=== PATIENT | female | born 1990 | race Asian ===

== ENCOUNTER 2018-06-27 16:31 | Outpatient (CLI) | payer MEDICAID ==
[2018-06-27 19:12] LABS: ADD MAN DIFF? NO
[2018-06-27 19:15] LABS: BASOPHILS % 0.2 % (0.0-2.0); EOSINOPHILS % 0.3 % (0.0-7.0); HEMATOCRIT 36.4 % (37.0-47.0); HEMOGLOBIN 11.9 g/dl (12.0-16.0); LYMPHOCYTES % 22.2 % (15.0-51.0); MEAN CORPUSCULAR HEMOGLOBIN 28.2 pg (29.0-33.0); MEAN CORPUSCULAR HGB CONC 32.7 g/dl (32.0-37.0); MEAN CORPUSCULAR VOLUME 86.3 fl (82.0-101.0); MEAN PLATELET VOLUME 10.8 fl (7.4-10.4); MONOCYTE # 0.7 10^3/ul (0.3-0.9); MONOCYTES % 7.9 % (0.0-11.0); NEUTROPHIL # 6.3 10^3/ul (1.6-7.5); PLATELET COUNT 213 10^3/UL (140-415); RED BLOOD COUNT 4.22 10^6/ul (4.20-5.40); RED CELL DISTRIBUTION WIDTH 14.5 % (11.5-14.5)
[2018-06-27 19:15] LABS: WHITE BLOOD COUNT 9.1 10^3/ul (4.8-10.8)
[2018-06-27 19:33] LABS: ADD UMIC YES; UR ASCORBIC ACID NEGATIVE (NEGATIVE); UR BACTERIA FEW /HPF (NONE SEEN); UR BILIRUBIN (Dip) NEGATIVE (NEGATIVE); UR BLOOD (Dip) 1+ mg/dL (NEGATIVE); UR CLARITY CLEAR (CLEAR); UR COLOR STRAW (YELLOW); UR GLUCOSE (Dip) NEGATIVE (NEGATIVE); UR KETONES (Dip) NEGATIVE (NEGATIVE); UR LEUKOCYTE ESTERASE (Dip) NEGATIVE Leu/ul (NEGATIVE); UR NITRITE (Dip) NEGATIVE (NEGATIVE); UR RBC 0 /HPF (0-5); UR SPECIFIC GRAVITY (Dip) 1.006 (1.003-1.030); UR TOTAL PROTEIN (Dip) NEGATIVE (NEGATIVE); UR UROBILINOGEN (Dip) NEGATIVE (NEGATIVE); UR WBC 0 /HPF (0-5)
== END 2018-06-27 20:00 | disposition home or self-care (01) ==
LOC: OBT 16:31 → L-D 16:32 → OBT 20:00
DX: O26.852 Spotting complicating pregnancy, second trimester (principal); Z3A.26 26 weeks gestation of pregnancy
CPT/HCPCS: 76817; 76818; 81001; 85025

== ENCOUNTER 2018-07-04 08:14 | Inpatient (IN) | payer MEDICAID ==
[2018-07-04] MEDS: LACTATED RINGER'S 1,000 ML IV ×2 (09:52→20:36)
[2018-07-04] MEDS: MAGNESIUM SULFATE 4 GM/100 ML 100 ML IV (09:55)
[2018-07-04] MEDS: MAGNESIUM SULFATE 20 GM/500 ML 500 ML IV ×2 (10:29→20:43)
[2018-07-04 11:23] LABS: ADD MAN DIFF? NO
[2018-07-04 11:35] LABS: WHITE BLOOD COUNT 7.3 10^3/ul (4.8-10.8)
[2018-07-04 11:35] LABS: BASOPHILS % 0.3 % (0.0-2.0); EOSINOPHILS % 0.5 % (0.0-7.0); HEMATOCRIT 34.6 % (37.0-47.0); HEMOGLOBIN 11.2 g/dl (12.0-16.0); LYMPHOCYTES # 1.5 10^3/ul (0.8-2.9); LYMPHOCYTES % 20.4 % (15.0-51.0); MEAN CORPUSCULAR HEMOGLOBIN 27.7 pg (29.0-33.0); MEAN CORPUSCULAR HGB CONC 32.4 g/dl (32.0-37.0); MEAN CORPUSCULAR VOLUME 85.6 fl (82.0-101.0); MEAN PLATELET VOLUME 11.1 fl (7.4-10.4); MONOCYTE # 0.4 10^3/ul (0.3-0.9); MONOCYTES % 5.6 % (0.0-11.0); NEUTROPHIL # 5.3 10^3/ul (1.6-7.5); NEUTROPHILS % 72.8 % (39.0-77.0); PLATELET COUNT 207 10^3/UL (140-415); RED BLOOD COUNT 4.04 10^6/ul (4.20-5.40); RED CELL DISTRIBUTION WIDTH 14.4 % (11.5-14.5)
[2018-07-04 11:57] LABS: ALANINE AMINOTRANSFERASE 18 IU/L (13-69); ALBUMIN 3.5 g/dl (3.3-4.9); ALBUMIN/GLOBULIN RATIO 1.12; ALKALINE PHOSPHATASE 56 IU/L (42-121); ANION GAP 9 (5-13); ASPARTATE AMINO TRANSFERASE 19 IU/L (15-46); BILIRUBIN,INDIRECT 0.2 mg/dl (0-1.1); BILIRUBIN,TOTAL 0.2 mg/dl (0.2-1.3); BLOOD UREA NITROGEN 6 mg/dl (7-20); CALCIUM 8.3 mg/dl (8.4-10.2); CARBON DIOXIDE 26 mmol/L (21-31); CHLORIDE 104 mmol/L (97-110); CREATININE 0.44 mg/dl (0.44-1.00); Estimated GFR > 60 mL/min (>60); GLUCOSE 99 mg/dl (70-220); POTASSIUM 3.8 mmol/L (3.5-5.1); SODIUM 139 mmol/L (135-144); TOTAL PROTEIN 6.6 g/dl (6.1-8.1)
[2018-07-04 12:04] LABS: ADD UMIC YES; UR ASCORBIC ACID NEGATIVE (NEGATIVE); UR BACTERIA FEW /HPF (NONE SEEN); UR BILIRUBIN (Dip) NEGATIVE (NEGATIVE); UR BLOOD (Dip) 1+ mg/dL (NEGATIVE); UR CLARITY CLEAR (CLEAR); UR COLOR STRAW (YELLOW); UR GLUCOSE (Dip) NEGATIVE (NEGATIVE); UR KETONES (Dip) NEGATIVE (NEGATIVE); UR LEUKOCYTE ESTERASE (Dip) NEGATIVE Leu/ul (NEGATIVE); UR MUCUS FEW /HPF (NONE SEEN); UR NITRITE (Dip) NEGATIVE (NEGATIVE); UR RBC 0 /HPF (0-5); UR SPECIFIC GRAVITY (Dip) 1.006 (1.003-1.030); UR TOTAL PROTEIN (Dip) NEGATIVE (NEGATIVE); UR UROBILINOGEN (Dip) NEGATIVE (NEGATIVE); UR WBC 0 /HPF (0-5)
[2018-07-04] MEDS: BETAMET NA PHOS/AC(6 MG/ML) 2 ML INJ SYG IM (12:50)
[2018-07-04] MEDS: INDOMETHACIN 25 MG PO (18:05)
[2018-07-04 19:10] LABS: MAGNESIUM 5.6 mg/dl (1.7-2.5)
[2018-07-05] MEDS: INDOMETHACIN 25 MG PO ×4 (00:17→19:03)
[2018-07-05 01:32] LABS: MAGNESIUM 6.2 mg/dl (1.7-2.5)
[2018-07-05 07:14] LABS: MAGNESIUM 6.5 mg/dl (1.7-2.5)
[2018-07-05] MEDS: MAGNESIUM SULFATE 20 GM/500 ML 500 ML IV ×2 (07:22→19:02)
[2018-07-05] MEDS: PRENATAL VITAMIN PO ×2 (08:21→09:00)
[2018-07-05] MEDS: LACTATED RINGER'S 1,000 ML IV ×2 (10:22→23:36)
[2018-07-05 12:49] LABS: MAGNESIUM 6.6 mg/dl (1.7-2.5)
[2018-07-05] MEDS: BETAMET NA PHOS/AC(6 MG/ML) 2 ML INJ SYG IM (13:52)
[2018-07-05 19:39] LABS: MAGNESIUM 5.9 mg/dl (1.7-2.5)
[2018-07-05] MEDS: NIFEdipine 10 MG CAP PO (20:00)
[2018-07-05] MEDS: DIPHENHYDRAMINE 25 MG CAP PO (21:15)
[2018-07-06] MEDS: INDOMETHACIN 25 MG PO ×3 (00:14→13:59)
[2018-07-06] MEDS: NIFEdipine 10 MG CAP PO ×3 (00:14→13:59)
[2018-07-06] MEDS: LACTATED RINGER'S 1,000 ML IV (00:16)
== END 2018-07-06 14:30 | disposition home or self-care (01) | DRG 833 ==
LOC: OBT 08:14 → L-D 08:14 → OBT 08:48 → L-D 08:40
DX: O44.12 Complete placenta previa with hemorrhage, second trimester (principal); Z3A.27 27 weeks gestation of pregnancy
CPT/HCPCS: 80053; 81001; 83735; 85025; 86850; 86900; 86901; 87086

== ENCOUNTER 2018-07-31 09:14 | Inpatient (IN) | payer MEDICAID ==
[2018-07-31] MEDS ORDERED: ONDANSETRON 4 MG INJ IV (10:00)
[2018-07-31] MEDS ORDERED: AL HYDROX/MG HYDROX/SIMETH 30 ML CUP PO (10:00)
[2018-07-31] MEDS ORDERED: ACETAMINOPHEN 325 MG TAB PO (10:00)
[2018-07-31] MEDS: BETAMET NA PHOS/AC(6 MG/ML) 2 ML INJ SYG IM (10:15)
[2018-07-31] MEDS: LACTATED RINGER'S 1,000 ML IV ×2 (10:21→22:42)
[2018-07-31] MEDS: MAGNESIUM SULFATE 4 GM/100 ML 100 ML IV (10:37)
[2018-07-31 10:55] LABS: ADD MAN DIFF? NO
[2018-07-31 10:59] LABS: HEMATOCRIT 33.8 % (37.0-47.0); HEMOGLOBIN 11.3 g/dl (12.0-16.0); MEAN CORPUSCULAR VOLUME 84.7 fl (82.0-101.0); RED BLOOD COUNT 3.99 10^6/ul (4.20-5.40)
[2018-07-31 10:59] LABS: WHITE BLOOD COUNT 6.9 10^3/ul (4.8-10.8)
[2018-07-31 11:00] LABS: BASOPHILS % 0.1 % (0.0-2.0); EOSINOPHILS # 0.1 10^3/ul (0.0-0.5); LYMPHOCYTES # 1.4 10^3/ul (0.8-2.9); LYMPHOCYTES % 20.8 % (15.0-51.0); MEAN CORPUSCULAR HEMOGLOBIN 28.3 pg (29.0-33.0); MEAN CORPUSCULAR HGB CONC 33.4 g/dl (32.0-37.0); MEAN PLATELET VOLUME 10.7 fl (7.4-10.4); MONOCYTE # 0.5 10^3/ul (0.3-0.9); MONOCYTES % 7.5 % (0.0-11.0); NEUTROPHIL # 4.8 10^3/ul (1.6-7.5); NEUTROPHILS % 69.9 % (39.0-77.0); PLATELET COUNT 178 10^3/UL (140-415); RED CELL DISTRIBUTION WIDTH 14.4 % (11.5-14.5)
[2018-07-31 11:18] LABS: INR 0.92; PROTIME 12.4 Sec (11.9-14.9)
[2018-07-31 11:19] LABS: PARTIAL THROMBOPLASTIN TIME 24.1 Sec (23.0-35.0)
[2018-07-31 11:23] LABS: ALANINE AMINOTRANSFERASE 8 IU/L (13-69); ALBUMIN 3.4 g/dl (3.3-4.9); ALBUMIN/GLOBULIN RATIO 1.09; ALKALINE PHOSPHATASE 76 IU/L (42-121); ANION GAP 10 (5-13); ASPARTATE AMINO TRANSFERASE 15 IU/L (15-46); BILIRUBIN,INDIRECT 0.1 mg/dl (0-1.1); BILIRUBIN,TOTAL 0.1 mg/dl (0.2-1.3); BLOOD UREA NITROGEN 7 mg/dl (7-20); CARBON DIOXIDE 23 mmol/L (21-31); CHLORIDE 105 mmol/L (97-110); CREATININE 0.44 mg/dl (0.44-1.00); Estimated GFR > 60 mL/min (>60); GLUCOSE 103 mg/dl (70-220); POTASSIUM 3.6 mmol/L (3.5-5.1); SODIUM 138 mmol/L (135-144); TOTAL PROTEIN 6.5 g/dl (6.1-8.1)
[2018-07-31] MEDS: MAGNESIUM SULFATE 20 GM/500 ML 500 ML IV ×2 (12:32→21:28)
[2018-07-31] MEDS: PRENATAL VITAMIN PO (13:55)
[2018-07-31] MEDS: FERROUS SULFATE (EC) 325 MG TAB PO (13:55)
[2018-07-31 14:54] LABS: RAPID PLASMA REAGIN NONREACTIVE (NR)
[2018-07-31 18:49] LABS: MAGNESIUM 5.4 mg/dl (1.7-2.5)
[2018-08-01 01:22] LABS: MAGNESIUM 5.8 mg/dl (1.7-2.5)
[2018-08-01 07:11] LABS: MAGNESIUM 6.1 mg/dl (1.7-2.5)
[2018-08-01] MEDS: MAGNESIUM SULFATE 20 GM/500 ML 500 ML IV (07:12)
[2018-08-01] MEDS: PRENATAL VITAMIN PO (09:21)
[2018-08-01] MEDS: FERROUS SULFATE (EC) 325 MG TAB PO (09:21)
[2018-08-01] MEDS: LACTATED RINGER'S 1,000 ML IV ×2 (09:44→12:04)
[2018-08-01] MEDS: BETAMET NA PHOS/AC(6 MG/ML) 2 ML INJ SYG IM (10:22)
[2018-08-01 13:23] LABS: MAGNESIUM 6.2 mg/dl (1.7-2.5)
[2018-08-01] MEDS ORDERED: NIFEdipine 10 MG CAP PO (15:00)
[2018-08-01] MEDS: NIFEdipine 10 MG CAP PO (15:03)
== END 2018-08-01 16:45 | disposition home or self-care (01) | DRG 831 ==
LOC: OBT 09:14 → L-D 09:15 → OBT 09:30 → L-D 09:30
DX: O60.03 Preterm labor without delivery, third trimester (principal); O44.13 Complete placenta previa with hemorrhage, third trimester; Z3A.31 31 weeks gestation of pregnancy
CPT/HCPCS: 76815; 76817; 76818; 80053; 83735; 85025; 85610; 85730; 86592; 86850; 86900; 86901

== ENCOUNTER 2018-08-23 20:20 | Inpatient (IN) | payer MEDICAID ==
[2018-08-23] MEDS ORDERED: ONDANSETRON 4 MG INJ IV (21:30)
[2018-08-23] MEDS ORDERED: AL HYDROX/MG HYDROX/SIMETH 30 ML CUP PO (21:30)
[2018-08-23] MEDS ORDERED: ACETAMINOPHEN 325 MG TAB PO (21:30)
[2018-08-23] MEDS: LACTATED RINGER'S 1,000 ML IV (22:07)
[2018-08-23] MEDS: MAGNESIUM SULFATE 4 GM/100 ML 100 ML IV (22:15)
[2018-08-23 22:25] LABS: WHITE BLOOD COUNT 7.6 10^3/ul (4.8-10.8)
[2018-08-23 22:25] LABS: ADD MAN DIFF? NO; BASOPHILS % 0.3 % (0.0-2.0); EOSINOPHILS # 0.1 10^3/ul (0.0-0.5); EOSINOPHILS % 1.4 % (0.0-7.0); HEMATOCRIT 34.2 % (37.0-47.0); HEMOGLOBIN 11.4 g/dl (12.0-16.0); LYMPHOCYTES % 26.6 % (15.0-51.0); MEAN CORPUSCULAR HEMOGLOBIN 28.3 pg (29.0-33.0); MEAN CORPUSCULAR HGB CONC 33.3 g/dl (32.0-37.0); MEAN CORPUSCULAR VOLUME 84.9 fl (82.0-101.0); MONOCYTE # 0.7 10^3/ul (0.3-0.9); MONOCYTES % 8.6 % (0.0-11.0); NEUTROPHIL # 4.7 10^3/ul (1.6-7.5); NEUTROPHILS % 62.4 % (39.0-77.0); PLATELET COUNT 179 10^3/UL (140-415); RED BLOOD COUNT 4.03 10^6/ul (4.20-5.40); RED CELL DISTRIBUTION WIDTH 14.6 % (11.5-14.5)
[2018-08-23 22:29] LABS: ADD UMIC YES; UR ASCORBIC ACID NEGATIVE (NEGATIVE); UR BACTERIA FEW /HPF (NONE SEEN); UR BILIRUBIN (Dip) NEGATIVE (NEGATIVE); UR BLOOD (Dip) 3+ mg/dL (NEGATIVE); UR CLARITY CLEAR (CLEAR); UR COLOR STRAW (YELLOW); UR GLUCOSE (Dip) NEGATIVE (NEGATIVE); UR KETONES (Dip) NEGATIVE (NEGATIVE); UR LEUKOCYTE ESTERASE (Dip) NEGATIVE Leu/ul (NEGATIVE); UR NITRITE (Dip) NEGATIVE (NEGATIVE); UR RBC 1 /HPF (0-5); UR SPECIFIC GRAVITY (Dip) 1.006 (1.003-1.030); UR SQUAMOUS EPITHELIAL CELL FEW /HPF (FEW); UR TOTAL PROTEIN (Dip) NEGATIVE (NEGATIVE); UR UROBILINOGEN (Dip) NEGATIVE (NEGATIVE); UR WBC 1 /HPF (0-5)
[2018-08-23 22:44] LABS: INR 0.89; PROTIME 12.1 Sec (11.9-14.9); PT RATIO 0.9
[2018-08-23] MEDS: MAGNESIUM SULFATE 20 GM/500 ML 500 ML IV (22:49)
[2018-08-24] MEDS: BETAMET NA PHOS/AC(6 MG/ML) 2 ML INJ SYG IM (00:59)
[2018-08-24 04:51] LABS: MAGNESIUM 5.2 mg/dl (1.7-2.5)
[2018-08-24] MEDS: PRENATAL VITAMIN PO (08:29)
[2018-08-24] MEDS: DOCUSATE SODIUM 100 MG CAP PO ×2 (08:29→22:00)
[2018-08-24] MEDS: MAGNESIUM SULFATE 20 GM/500 ML 500 ML IV ×2 (08:36→18:28)
[2018-08-24] MEDS: LACTATED RINGER'S 1,000 ML IV ×2 (10:41→23:36)
[2018-08-24 11:05] LABS: MAGNESIUM 5.8 mg/dl (1.7-2.5)
[2018-08-24 17:08] LABS: MAGNESIUM 6.1 mg/dl (1.7-2.5)
[2018-08-24 22:37] LABS: MAGNESIUM 5.9 mg/dl (1.7-2.5)
[2018-08-25] MEDS: BETAMET NA PHOS/AC(6 MG/ML) 2 ML INJ SYG IM (00:33)
[2018-08-25] MEDS: MAGNESIUM SULFATE 20 GM/500 ML 500 ML IV ×2 (04:04→13:20)
[2018-08-25 05:27] LABS: MAGNESIUM 6.3 mg/dl (1.7-2.5)
[2018-08-25] MEDS: DOCUSATE SODIUM 100 MG CAP PO (09:09)
[2018-08-25] MEDS: PRENATAL VITAMIN PO (09:09)
[2018-08-25 11:01] LABS: MAGNESIUM 6.2 mg/dl (1.7-2.5)
[2018-08-25] MEDS: NIFEdipine 10 MG CAP PO (14:08)
== END 2018-08-25 16:03 | disposition home or self-care (01) | DRG 832 ==
LOC: OBT 20:20 → L-D 20:20 → OBT 21:15 → L-D 21:15 → PP1 23:34
PROVIDERS: Obstetrics & Gynecology
DX: O46.93 Antepartum hemorrhage, unspecified, third trimester (principal); O47.03 False labor before 37 completed weeks of gestation, third trimester; Z3A.31 31 weeks gestation of pregnancy
CPT/HCPCS: 81001; 83735; 85025; 85610; 85730; 86850; 86900; 86901; 87086

== ENCOUNTER 2018-08-26 16:56 | Inpatient (IN) | payer MEDICAID ==
[2018-08-26 17:43] LABS: ADD UMIC YES; UR ASCORBIC ACID NEGATIVE (NEGATIVE); UR BACTERIA FEW /HPF (NONE SEEN); UR BILIRUBIN (Dip) NEGATIVE (NEGATIVE); UR BLOOD (Dip) 1+ mg/dL (NEGATIVE); UR CLARITY CLEAR (CLEAR); UR COLOR STRAW (YELLOW); UR GLUCOSE (Dip) NEGATIVE (NEGATIVE); UR KETONES (Dip) NEGATIVE (NEGATIVE); UR LEUKOCYTE ESTERASE (Dip) TRACE Leu/ul (NEGATIVE); UR MUCUS FEW /HPF (NONE SEEN); UR NITRITE (Dip) NEGATIVE (NEGATIVE); UR RBC 0 /HPF (0-5); UR SPECIFIC GRAVITY (Dip) 1.005 (1.003-1.030); UR TOTAL PROTEIN (Dip) NEGATIVE (NEGATIVE); UR UROBILINOGEN (Dip) NEGATIVE (NEGATIVE); UR WBC 1 /HPF (0-5)
[2018-08-26] MEDS: TERBUTALINE 1 MG/ML INJ SC ×2 (18:44→22:04)
[2018-08-26] MEDS: LACTATED RINGER'S 1,000 ML IV (21:24)
[2018-08-26 22:25] LABS: ADD MAN DIFF? NO
[2018-08-26 22:27] LABS: BASOPHILS % 0.2 % (0.0-2.0); EOSINOPHILS % 0.3 % (0.0-7.0); HEMATOCRIT 33.6 % (37.0-47.0); LYMPHOCYTES # 2.2 10^3/ul (0.8-2.9); LYMPHOCYTES % 21.9 % (15.0-51.0); MEAN CORPUSCULAR HEMOGLOBIN 28.4 pg (29.0-33.0); MEAN CORPUSCULAR HGB CONC 32.7 g/dl (32.0-37.0); MEAN CORPUSCULAR VOLUME 86.6 fl (82.0-101.0); MEAN PLATELET VOLUME 11.4 fl (7.4-10.4); MONOCYTE # 1.1 10^3/ul (0.3-0.9); MONOCYTES % 10.6 % (0.0-11.0); NEUTROPHIL # 6.5 10^3/ul (1.6-7.5); NEUTROPHILS % 65.6 % (39.0-77.0); PLATELET COUNT 195 10^3/UL (140-415); RED BLOOD COUNT 3.88 10^6/ul (4.20-5.40); RED CELL DISTRIBUTION WIDTH 15.2 % (11.5-14.5)
[2018-08-26 22:58] LABS: INR 0.92; PROTIME 12.5 Sec (11.9-14.9)
[2018-08-26 22:59] LABS: PARTIAL THROMBOPLASTIN TIME 21.1 Sec (23.0-35.0)
[2018-08-27] MEDS: LACTATED RINGER'S 1,000 ML IV ×2 (03:14→10:57)
[2018-08-27] MEDS: PRENATAL VITAMIN PO (08:41)
[2018-08-27] MEDS: NIFEdipine 10 MG CAP PO (08:42)
== END 2018-08-27 21:20 | disposition home or self-care (01) | DRG 833 ==
LOC: OBT 16:56 → L-D 16:57 → OBT 20:34 → L-D 20:34 → PP1 22:47
DX: O47.03 False labor before 37 completed weeks of gestation, third trimester (principal); Z3A.35 35 weeks gestation of pregnancy
CPT/HCPCS: 76818; 81001; 85025; 85610; 85730

== ENCOUNTER 2018-08-30 08:58 | Outpatient (CLI) | payer MEDICAID | END 2018-08-30 10:20 | disposition home or self-care (01) | LOC: OBT 08:58 → L-D 08:59 → OBT 10:20 | DX: O43.893 Other placental disorders, third trimester (principal); Z3A.35 35 weeks gestation of pregnancy | CPT/HCPCS: 76818 ==

== ENCOUNTER 2018-08-31 07:49 | Inpatient (IN) | payer MEDICAID ==
[2018-08-31 08:31] LABS: ADD UMIC YES; UR ASCORBIC ACID NEGATIVE (NEGATIVE); UR BACTERIA FEW /HPF (NONE SEEN); UR BILIRUBIN (Dip) NEGATIVE (NEGATIVE); UR BLOOD (Dip) 1+ mg/dL (NEGATIVE); UR CLARITY CLEAR (CLEAR); UR COLOR YELLOW (YELLOW); UR GLUCOSE (Dip) 1+ mg/dL (NEGATIVE); UR KETONES (Dip) NEGATIVE (NEGATIVE); UR LEUKOCYTE ESTERASE (Dip) NEGATIVE Leu/ul (NEGATIVE); UR NITRITE (Dip) NEGATIVE (NEGATIVE); UR RBC 1 /HPF (0-5); UR SPECIFIC GRAVITY (Dip) 1.019 (1.003-1.030); UR SQUAMOUS EPITHELIAL CELL FEW /HPF (FEW); UR TOTAL PROTEIN (Dip) 1+ mg/dl (NEGATIVE); UR UROBILINOGEN (Dip) NEGATIVE (NEGATIVE); UR WBC 3 /HPF (0-5)
[2018-08-31 08:43] LABS: RUPTURE FETAL MEMBRANES POSITIVE (NEGATIVE)
[2018-08-31] MEDS ORDERED: LIDOCAINE 1% (MPF) 30 ML INJ INJ (09:30)
[2018-08-31] MEDS ORDERED: MISOPROSTOL 200 MCG TAB PR ×2 (09:30→23:00)
[2018-08-31] MEDS ORDERED: OXYTOCIN 30 UNITS/LR 500 ML IV ×4 (09:30→23:00)
[2018-08-31] MEDS ORDERED: METHYLERGONOVINE 0.2 MG INJ IM ×2 (09:30→23:00)
[2018-08-31] MEDS ORDERED: BUTORPHANOL 2 MG INJ IV (09:30)
[2018-08-31] MEDS ORDERED: OXYCODONE/ASPIRIN (4.88/325) TAB PO (09:30)
[2018-08-31] MEDS ORDERED: CARBOPROST 250 MCG INJ IM ×2 (09:30→23:00)
[2018-08-31] MEDS ORDERED: IBUPROFEN 600 MG TAB PO (09:30)
[2018-08-31] MEDS: LACTATED RINGER'S 1,000 ML IV ×3 (09:48→23:29)
[2018-08-31 10:12] LABS: ADD MAN DIFF? NO
[2018-08-31 10:15] LABS: WHITE BLOOD COUNT 9.2 10^3/ul (4.8-10.8)
[2018-08-31 10:15] LABS: BASOPHILS % 0.2 % (0.0-2.0); EOSINOPHILS # 0.1 10^3/ul (0.0-0.5); EOSINOPHILS % 1.1 % (0.0-7.0); HEMATOCRIT 35.1 % (37.0-47.0); HEMOGLOBIN 11.7 g/dl (12.0-16.0); LYMPHOCYTES # 1.9 10^3/ul (0.8-2.9); LYMPHOCYTES % 20.2 % (15.0-51.0); MEAN CORPUSCULAR HEMOGLOBIN 28.8 pg (29.0-33.0); MEAN CORPUSCULAR HGB CONC 33.3 g/dl (32.0-37.0); MEAN CORPUSCULAR VOLUME 86.5 fl (82.0-101.0); MEAN PLATELET VOLUME 10.7 fl (7.4-10.4); MONOCYTE # 0.9 10^3/ul (0.3-0.9); MONOCYTES % 9.9 % (0.0-11.0); NEUTROPHIL # 6.2 10^3/ul (1.6-7.5); NEUTROPHILS % 67.2 % (39.0-77.0); PLATELET COUNT 205 10^3/UL (140-415); RED BLOOD COUNT 4.06 10^6/ul (4.20-5.40); RED CELL DISTRIBUTION WIDTH 14.7 % (11.5-14.5)
[2018-08-31 10:35] LABS: INR 0.89; PROTIME 12.1 Sec (11.9-14.9); PT RATIO 0.9
[2018-08-31] MEDS: AMPICILLIN 2 GM/NS (PMX) 100 ML IV ×2 (10:42→16:55)
[2018-08-31] MEDS: OXYTOCIN 30 UNITS/LR 500 ML IV ×2 (11:08→19:09)
[2018-08-31 11:11] LABS: HEPATITIS B SURFACE ANTIGEN NEGATIVE (NEGATIVE)
[2018-08-31] MEDS: CEFAZOLIN 2 GM/50 ML (PMX) 50 ML IVPB ×2 (17:00→23:28)
[2018-08-31] MEDS ORDERED: CEFAZOLIN 2 GM/50 ML (PMX) 50 ML IVPB (17:03)
[2018-08-31] MEDS ORDERED: METOCLOPRAMIDE 10 MG INJ (17:46)
[2018-08-31] MEDS ORDERED: morphine SULFATE/PF (10 MG/10 ML) INJ (17:46)
[2018-08-31] MEDS ORDERED: OXYTOCIN 10 UNIT INJ ×2 (17:46→18:27)
[2018-08-31] MEDS ORDERED: ONDANSETRON 4 MG INJ (17:46)
[2018-08-31] MEDS ORDERED: EPHEDrine 25 MG/5 ML SYG (18:27)
[2018-08-31] MEDS ORDERED: KETOROLAC 60 MG INJ IM (19:04)
[2018-08-31] MEDS ORDERED: morphine 2 MG INJ IV ×2 (19:30)
[2018-08-31] MEDS ORDERED: EPHEDrine SULFATE 50 MG/5 ML SYG IV (19:30)
[2018-08-31] MEDS ORDERED: ONDANSETRON 4 MG INJ IV (19:30)
[2018-08-31] MEDS ORDERED: morphine SULFATE/PF (10 MG/10 ML) INJ SPINAL (19:30)
[2018-08-31] MEDS ORDERED: NALOXONE (0.4 MG/ML) INJ IV (19:30)
[2018-08-31] MEDS: KETOROLAC 30 MG INJ IV (19:41)
[2018-08-31 19:56] LABS: RAPID PLASMA REAGIN NONREACTIVE (NR)
[2018-08-31] MEDS: AZITHROMYCIN 500MG/NS (PMX) 250 ML IVPB (20:31)
[2018-08-31] MEDS ORDERED: NA PHOSPHATE/BIPHOS 133 ML ENEMA PR (23:00)
[2018-08-31] MEDS ORDERED: LANOLIN HPA 1 PKT TOP (23:00)
[2018-08-31] MEDS: DIPHENHYDRAMINE 50 MG INJ IV (23:14)
[2018-09-01] MEDS: CLINDAMYCIN 300 MG CAP PO ×4 (00:18→18:49)
[2018-09-01] MEDS: KETOROLAC 30 MG INJ IV ×3 (03:36→15:31)
[2018-09-01] MEDS: CEFAZOLIN 2 GM/50 ML (PMX) 50 ML IVPB ×2 (06:19→14:59)
[2018-09-01 06:41] LABS: ADD MAN DIFF? NO
[2018-09-01 06:48] LABS: BASOPHILS % 0.2 % (0.0-2.0); EOSINOPHILS % 0.4 % (0.0-7.0); HEMATOCRIT 31.8 % (37.0-47.0); HEMOGLOBIN 10.4 g/dl (12.0-16.0); LYMPHOCYTES # 1.8 10^3/ul (0.8-2.9); LYMPHOCYTES % 16.5 % (15.0-51.0); MEAN CORPUSCULAR HEMOGLOBIN 28.3 pg (29.0-33.0); MEAN CORPUSCULAR HGB CONC 32.7 g/dl (32.0-37.0); MEAN CORPUSCULAR VOLUME 86.6 fl (82.0-101.0); MEAN PLATELET VOLUME 10.6 fl (7.4-10.4); MONOCYTE # 0.7 10^3/ul (0.3-0.9); MONOCYTES % 6.3 % (0.0-11.0); NEUTROPHIL # 8.2 10^3/ul (1.6-7.5); PLATELET COUNT 167 10^3/UL (140-415); RED BLOOD COUNT 3.67 10^6/ul (4.20-5.40); RED CELL DISTRIBUTION WIDTH 14.6 % (11.5-14.5)
[2018-09-01 06:48] LABS: WHITE BLOOD COUNT 10.8 10^3/ul (4.8-10.8)
[2018-09-01] MEDS: LACTATED RINGER'S 1,000 ML IV ×2 (07:01→15:35)
[2018-09-01] MEDS: SENNA/DOCUSATE NA (8.6MG/50MG) TAB PO ×2 (09:31→21:41)
[2018-09-01] MEDS ORDERED: BISACODYL 10 MG SUPP PR (18:47)
[2018-09-01] MEDS: BISACODYL 10 MG SUPP PR (18:49)
[2018-09-01] MEDS: IBUPROFEN 800 MG TAB PO (21:41)
[2018-09-02] MEDS: CLINDAMYCIN 300 MG CAP PO ×4 (00:01→17:53)
[2018-09-02] MEDS: GUAIFENESIN 20 MG/ML 5ML CUP PO ×3 (00:01→19:47)
[2018-09-02] MEDS: HYDROCODONE/APAP (5/325) TAB PO ×2 (00:27→16:19)
[2018-09-02] MEDS: IBUPROFEN 800 MG TAB PO ×3 (05:30→21:36)
[2018-09-02] MEDS: SENNA/DOCUSATE NA (8.6MG/50MG) TAB PO ×2 (08:17→20:42)
[2018-09-02] MEDS: OXYCODONE/ACETAMINOPHEN (5/325) TAB PO ×2 (09:23→20:43)
[2018-09-02] MEDS ORDERED: ACETAMINOPHEN 325 MG TAB PO (14:00)
[2018-09-03] MEDS: CLINDAMYCIN 300 MG CAP PO ×3 (00:07→13:35)
[2018-09-03] MEDS: GUAIFENESIN 20 MG/ML 5ML CUP PO (00:07)
[2018-09-03] MEDS: HYDROCODONE/APAP (5/325) TAB PO (00:59)
[2018-09-03] MEDS: IBUPROFEN 800 MG TAB PO ×3 (05:37→14:20)
[2018-09-03] MEDS: DIPHTH/TET/ACEL PERTUSS (ADULT) 0.5 ML VIAL IM* (09:00)
[2018-09-03] MEDS: MEASLES,MUMPS,RUBELLA VACCINE INJ SC* (09:00)
[2018-09-03] MEDS: SENNA/DOCUSATE NA (8.6MG/50MG) TAB PO (10:09)
[2018-09-03] MEDS: OXYCODONE/ACETAMINOPHEN (5/325) TAB PO (10:09)
== END 2018-09-03 16:40 | disposition home or self-care (01) | DRG 786 ==
LOC: OBT 07:49 → L-D 07:49 → OBT 09:21 → L-D 09:10 → PP1 21:25
PROVIDERS: Obstetrics & Gynecology
PROC: 10D00Z1 Extraction of Products of Conception, Low, Open Approach (ICD-10-PCS; principal; 2018-08-31 17:30)
DX: O69.4XX0 Labor and delivery complicated by vasa previa, not applicable or unspecified (principal); O44.53 Low lying placenta with hemorrhage, third trimester; Z3A.35 35 weeks gestation of pregnancy; Z37.0 Single live birth
CPT/HCPCS: 76815; 76817; 76818; 81001; 84112; 85025; 85610; 85730; 86592; 86850; 86900; 86901; 87340; 99464